=== PATIENT | male | born 2000 | race Caucasian/White ===

== ENCOUNTER 2020-12-27 02:46 | Emergency (ER) | payer BC, OTHER ==
[2020-12-27 02:53] VITALS: TEMP 98.6
[2020-12-27] MEDS ORDERED: SODIUM CHLORIDE 0.9% 1,000 ML IV STA (03:49)
[2020-12-27] MEDS ORDERED: diphenhydrAMINE 50 MG/ML 1 ML VIAL IVP STA (03:54)
[2020-12-27] MEDS ORDERED: FAMOTIDINE 20 MG/2 ML VIAL IV STA (03:54)
[2020-12-27] MEDS ORDERED: methylPREDNISolone SOD SUCCI 125 MG/2 ML VIAL IV STA (03:54)
--- NOTE | 2020-12-27 03:55 | ED ---
Chest Pain HPI - General Chief Complaint: Chest Pain Stated Complaint: Chest/Shoulder Pressure Time Seen by Provider: 12/27/20 03:09 Source: patient, family, RN notes reviewed, old records reviewed Mode of arrival: ambulatory Limitations: no limitations - History of Present Illness Initial Comments: This is a 20-year-old male to the ER for evaluation. Patient has anterior chest pain, he has been experiencing the symptoms since he received to coronavirus vaccination. Patient does admit to little anxiety regarding that 20 since. Patient also does sofia. Otherwise no drugs or alcohol. No trauma. No fevers cough or congestion. Symptoms of been episodic worse at night. MD Complaint: chest pain -: week(s) Onset: during rest, during exertion Pain Location: right chest Pain Radiation: RUE, LUE Severity: mild Severity scale (1-10): 3 Quality: tightness Consistency: intermittent Improves With: nothing Worsens With: nothing Context: other (Recent coronavirus vaccine) Anginal Symptoms: nausea Other Symptoms: palpitations Treatments Prior to Arrival: none - Related Data Home Medications Medication Instructions Recorded Confirmed Sertraline [Zoloft] 100 mg PO DAILY 03/22/14 03/22/14 Allergies Allergy/AdvReac Type Severity Reaction Status Date / Time fexofenadine HCl Allergy Unknown Verified 12/27/20 02:53 [From Vidhi] iodine Allergy Unknown Verified 12/27/20 02:53 Review of Systems ROS Statement: Those systems with pertinent positive or pertinent negative responses have been documented in the HPI. ROS Other: All systems not noted in ROS Statement are negative. EKG Findings - EKG Comments: EKG Findings:: EKG is sinus rhythm 68 IA 146 QRS 104 QTC 387 Past Medical History Past Medical History: No Reported History Additional Past Medical History / Comment(s): anger issues History of Any Multi-Drug Resistant Organisms: None Reported Past Surgical History: No Surgical Hx Reported Past Psychological History: No Psychological Hx Reported Smoking Status: Vaper Past Alcohol Use History: Occasional Past Drug Use History: None Reported General Exam Limitations: no limitations General appearance: alert, in no apparent distress Head exam: Present: atraumatic, normocephalic, normal inspection Eye exam: Present: normal appearance, PERRL, EOMI. Absent: scleral icterus, conjunctival injection, periorbital swelling ENT exam: Present: normal exam, mucous membranes moist Neck exam: Present: normal inspection. Absent: tenderness, meningismus, lymphadenopathy Respiratory exam: Present: normal lung sounds bilaterally. Absent: respiratory distress, wheezes, rales, rhonchi, stridor Cardiovascular Exam: Present: regular rate, normal rhythm, normal heart sounds. Absent: systolic murmur, diastolic murmur, rubs, gallop, clicks GI/Abdominal exam: Present: soft, normal bowel sounds. Absent: distended, tenderness, guarding, rebound, rigid Extremities exam: Present: normal inspection, full ROM, normal capillary refill. Absent: tenderness, pedal edema, joint swelling, calf tenderness Back exam: Present: normal inspection Neurological exam: Present: alert, oriented X3, CN II-XII intact Psychiatric exam: Present: normal affect, normal mood Skin exam: Present: warm, dry, intact, normal color. Absent: rash Course Vital Signs 12/27/20 12/27/20 02:49 04:03 Temperature 98.6 F Pulse Rate 90 66 Respiratory 22 18 Rate Blood Pressure 134/76 115/70 O2 Sat by Pulse 99 100 Oximetry - Reevaluation(s) Reevaluation #1: 12/27/20 05:18 Medical record is reviewed Reevaluation #2: 12/27/20 05:18 Patient is in no acute distress Reevaluation #3: 12/27/20 05:18 Patient family informed of results and questions are answered Reevaluation #4: 12/27/20 05:[address] chest is negative for acute disease Chest Pain MDM - MDM 20 male to the ER for evaluation. Patient presents today for evaluation regards to chest pain atypical. No acute cause found and patient can be discharged home Disposition Clinical Impression: Atypical chest pain, Chest pain Disposition: HOME SELF-CARE Condition: Good Instructions (If sedation given, give patient instructions): Chest Pain (ED) Is patient prescribed a controlled substance at d/c from ED?: No Referrals: None,Stated [Primary Care Provider] - 1-2 days
[2020-12-27 04:04] VITALS: RESP 18
[2020-12-27 04:21] LABS: Basophils # (A) 0.1 k/uL (0-0.2); Basophils % (A) 1 %; Eosinophils # (A) 0.2 k/uL (0-0.7); Eosinophils % (A) 3 %; HCT 41.6 % (39.0-53.0); HGB 14.7 gm/dL (13.0-17.5); Lymphocytes # (A) 2.3 k/uL (1.0-4.8); Lymphocytes % (A) 35 %; MCH 31.2 pg (25.0-35.0); MCHC 35.3 g/dL (31.0-37.0); MCV 88.2 fL (80.0-100.0); Mean Platelet Volume 9.5; Monocytes # (A) 0.5 k/uL (0-1.0); Monocytes % (A) 8 %; Neutrophils # (A) 3.5 k/uL (1.3-7.7); Neutrophils % (A) 52 %; Platelet Count 213 k/uL (150-450); RBC 4.72 m/uL (4.30-5.90); RDW 12.1 % (11.5-15.5); WBC 6.7 k/uL (4.0-11.0)
[2020-12-27 04:31] LABS: ALT 16 U/L (4-49); AST 25 U/L (17-59); African American GFR (CKD) >90 (>60 ml/min/1.73 sqM); Albumin 4.2 g/dL (3.5-5.0); Alkaline Phosphatase 111 U/L (38-126); Anion Gap 8 mmol/L; Blood Urea Nitrogen 14 mg/dL (9-20); Calcium 9.6 mg/dL (8.4-10.2); Carbon Dioxide 28 mmol/L (22-30); Chloride 105 mmol/L (98-107); Creatine Kinase 154 U/L (55-170); Glucose 91 mg/dL (74-99); Lipase 70 U/L (23-300); Magnesium 1.8 mg/dL (1.6-2.3); Non-African American GFR(CKD) >90 (>60 ml/min/1.73 sqM); Potassium 4.4 mmol/L (3.5-5.1); Sodium 141 mmol/L (137-145); Total Bilirubin 0.1 mg/dL (0.2-1.3); Total Protein 7.1 g/dL (6.3-8.2)
[2020-12-27 04:32] LABS: INR 1.1 (<1.2); Partial Thromboplastin Time 27.6 sec (22.0-30.0); Prothrombin Time 11.5 sec (9.0-12.0)
--- NOTE | 2020-12-27 05:06 | CT ---
EXAMINATION TYPE: CT angio chest DATE OF EXAM: 12/27/2020 COMPARISON: None HISTORY: R/O PE CT DLP: 406.20 mGycm Automated exposure control for dose reduction was used. CONTRAST: Performed with IV Contrast, patient injected with 80 mL of Isovue 370. Images obtained from the thoracic inlet to the diaphragm with IV contrast. There are 3-D post process ed images. The lungs are clear of consolidation. There is no evidence of a pulmonary mass. There is no pleural e ffusion. There is no pericardial effusion. Upper abdominal soft tissues are intact. There is no hilar mass. There is no mediastinal adenopathy. Thoracic aorta is intact. There is no ane urysm or dissection. There is normal contrast opacification of the pulmonary arteries. There are no filling defects. The thoracic vertebra have normal spacing and alignment. Posterior elements are intact. There is no c ompression fracture. Sternum is intact. I see no bony destructive process. IMPRESSION: Normal exam. No evidence of pulmonary embolism.
[2020-12-27 05:28] VITALS: BP 116/70; PULSE 60
== END 2020-12-27 05:28 | disposition home or self-care (01) ==
LOC: EC 02:46
DX: R07.89 Other chest pain (principal); F41.9 Anxiety disorder, unspecified; Z23 Encounter for immunization
CPT/HCPCS: 36415; 93005; 83880; 80053; 82550; 83690; 83735; 84484; 85025; 85610; 85730; 71275; 99285; 96374; 96375 ×2; 96361; J1200; J2930; Q9967

== ENCOUNTER 2020-12-29 23:50 | Emergency (ER) | payer BC, OTHER ==
--- NOTE | 2020-12-30 00:32 | XR ---
EXAMINATION TYPE: XR ankle complete RT DATE OF EXAM: 12/30/2020 COMPARISON: NONE HISTORY: Ankle pain TECHNIQUE: 3 views FINDINGS: There is soft tissue swelling over the lateral malleolus. Ankle mortise is anatomic. I see no fracture. Joint spaces are fairly normal. Subtalar joint is intact. IMPRESSION: Soft tissue swelling. No fracture seen.
--- NOTE | 2020-12-30 00:53 | ED ---
Lower Extremity Injury HPI - General Chief Complaint: Extremity Injury, Lower Stated Complaint: RT ankle injury Time Seen by Provider: 12/30/20 00:14 Source: patient, RN notes reviewed, old records reviewed Mode of arrival: ambulatory Limitations: no limitations - History of Present Illness Initial Comments: This is a 20-year-old male to the ER for evaluation. Patient states he was running to ER and his foot got stuck in a hole right-footed did twist. He went to the ground and then had significant pain in his right ankle with significant swelling since. No other traumatic injury noted. Patient has no significant medical history takes no medications. No other complaints MD Complaint: ankle injury -: hour(s) Injury: Ankle: Right Type of Injury: inversion Place: street/outdoors Severity: moderate Severity scale (1-10): 6 Improves With: nothing Worsens With: weight bearing Context: running Associated Symptoms: swelling Treatments Prior to Arrival: cold therapy - Related Data Home Medications Medication Instructions Recorded Confirmed Sertraline [Zoloft] 100 mg PO DAILY 03/22/14 12/30/20 Allergies Allergy/AdvReac Type Severity Reaction Status Date / Time fexofenadine HCl Allergy Unknown Verified 12/29/20 23:55 [From Vidhi] iodine Allergy Unknown Verified 12/29/20 23:55 Review of Systems ROS Statement: Those systems with pertinent positive or pertinent negative responses have been documented in the HPI. ROS Other: All systems not noted in ROS Statement are negative. Past Medical History Past Medical History: Asthma Additional Past Medical History / Comment(s): anger issues History of Any Multi-Drug Resistant Organisms: None Reported Past Surgical History: No Surgical Hx Reported Past Psychological History: No Psychological Hx Reported Smoking Status: Vaper Past Alcohol Use History: Occasional Past Drug Use History: None Reported General Exam Limitations: no limitations General appearance: alert, in no apparent distress Head exam: Present: atraumatic, normocephalic, normal inspection Eye exam: Present: normal appearance, PERRL, EOMI. Absent: scleral icterus, conjunctival injection, periorbital swelling ENT exam: Present: normal exam, mucous membranes moist Neck exam: Present: normal inspection. Absent: tenderness, meningismus, lymphadenopathy Respiratory exam: Present: normal lung sounds bilaterally. Absent: respiratory distress, wheezes, rales, rhonchi, stridor Cardiovascular Exam: Present: regular rate, normal rhythm, normal heart sounds. Absent: systolic murmur, diastolic murmur, rubs, gallop, clicks GI/Abdominal exam: Present: soft, normal bowel sounds. Absent: distended, tenderness, guarding, rebound, rigid Extremities exam: Present: tenderness, normal capillary refill, joint swelling (Right ankle). Absent: pedal edema, calf tenderness Back exam: Present: normal inspection Neurological exam: Present: alert, oriented X3, CN II-XII intact Psychiatric exam: Present: normal affect, normal mood Skin exam: Present: warm, dry, intact, normal color. Absent: rash Course Vital Signs 12/29/20 12/30/20 23:51 01:45 Temperature 98.3 F 98.2 F Pulse Rate 99 79 Respiratory 18 20 Rate Blood Pressure 125/74 122/70 O2 Sat by Pulse 99 99 Oximetry - Reevaluation(s) Reevaluation #1: 12/30/20 05:36 Medical record is reviewed Reevaluation #2: 12/30/20 05:36 Patient and family informed of results questions answered 12/30/20 05:36 Patient is able ambulate without difficulty Medical Decision Making - Medical Decision Making 20-year-old male to the ER for evaluation of ankle pain, right ankle sprain. X- rays negative for fracture patient can be discharged home - Radiology Data Radiology results: report reviewed (X-ray right ankle negative for fracture), image reviewed Disposition Clinical Impression: Fall, Right ankle sprain Disposition: HOME SELF-CARE Condition: Good Instructions (If sedation given, give patient instructions): Ankle Sprain (ED) Is patient prescribed a controlled substance at d/c from ED?: No Referrals: Jana Ann MD [Primary Care Provider] - 1-2 days
[2020-12-30 02:02] VITALS: BP 122/70; PULSE 79; RESP 20; TEMP 98.2
== END 2020-12-30 01:45 | disposition home or self-care (01) ==
LOC: EC 23:50
DX: S93.401A Sprain of unspecified ligament of right ankle, initial encounter (principal); J45.909 Unspecified asthma, uncomplicated; Y92.89 Other specified places as the place of occurrence of the external cause; X50.1XXA Overexertion from prolonged static or awkward postures, initial encounter
CPT/HCPCS: 99283

== ENCOUNTER 2021-11-02 17:19 | Emergency (ER) | payer OTHER ==
--- NOTE | 2021-11-02 18:59 | ED ---
Lower Extremity Injury HPI - General Chief Complaint: Extremity Injury, Lower Stated Complaint: Ankle injury Time Seen by Provider: 11/02/21 18:55 Source: patient, RN notes reviewed Mode of arrival: ambulatory Limitations: no limitations - History of Present Illness Initial Comments: * Injured his ankle yesterday. Patient states he stepped wrong, twisted his ankle, is describing inversion type injury. Patient has pain to the lateral aspect of the ankle. Patient able to walk. Patient requesting a work note as he has to be on his feet constantly at work. Pain is dull, exacerbated by walking and palpation. Patient denying any distal paresthesias. Denies any pain in the foot or proximally into the leg. Patient states he does not want x- rays. No headache, no fever or chills, no changes in vision or hearing, no sore throat or difficulty with speech, no neck pain, no chest pain or shortness of breath, no abdominal pain, no nausea or vomiting, no changes in urination or bowel movements, no numbness or tingling, no extremity pain, no skin rashes or lesions. MD Complaint: ankle injury - Related Data Home Medications Medication Instructions Recorded Confirmed Sertraline [Zoloft] 100 mg PO DAILY 03/22/14 12/30/20 Allergies Allergy/AdvReac Type Severity Reaction Status Date / Time fexofenadine HCl Allergy Unknown Verified 11/02/21 18:53 [From Vidhi] iodine Allergy Unknown Verified 11/02/21 18:53 Review of Systems ROS Statement: Those systems with pertinent positive or pertinent negative responses have been documented in the HPI. ROS Other: All systems not noted in ROS Statement are negative. Past Medical History Past Medical History: Asthma Additional Past Medical History / Comment(s): anger issues History of Any Multi-Drug Resistant Organisms: None Reported Past Surgical History: No Surgical Hx Reported Past Psychological History: No Psychological Hx Reported Smoking Status: Vaper Past Alcohol Use History: Occasional Past Drug Use History: None Reported General Exam Limitations: no limitations General appearance: alert, in no apparent distress Head exam: Present: atraumatic, normocephalic, normal inspection Eye exam: Present: normal appearance, PERRL, EOMI. Absent: scleral icterus, conjunctival injection, periorbital swelling ENT exam: Present: normal exam, mucous membranes moist Neck exam: Present: normal inspection. Absent: tenderness, meningismus, lymphadenopathy Respiratory exam: Present: normal lung sounds bilaterally. Absent: respiratory distress, wheezes, rales, rhonchi, stridor Cardiovascular Exam: Present: regular rate, normal rhythm, normal heart sounds. Absent: systolic murmur, diastolic murmur, rubs, gallop, clicks GI/Abdominal exam: Present: soft, normal bowel sounds. Absent: distended, tenderness, guarding, rebound, rigid Extremities exam: Present: full ROM, tenderness (Patient has tenderness over the area of the anterior talofibular ligament on the right ankle. No break in skin integrity. No erythema. No bony point tenderness.), normal capillary refill, other (Pedal pulses intact, capillary refill less than 2 seconds). Absent: joint swelling, calf tenderness Back exam: Present: normal inspection Neurological exam: Present: alert, oriented X3, CN II-XII intact Psychiatric exam: Present: normal affect, normal mood Skin exam: Present: warm, dry, intact, normal color. Absent: rash Course Vital Signs 11/02/21 18:50 Temperature 98.8 F Pulse Rate 87 Respiratory 18 Rate Blood Pressure 126/75 O2 Sat by Pulse 100 Oximetry Medical Decision Making - Medical Decision Making Patient passes out a lot ankle rules. I did discuss the possibility of fracture with the patient. However patient is electing not to have x-rays done. We'll treat conservatively with Rice therapy. Treatment measures discussed in detail with the patient. All questions answered. Patient was told to return to the ER for any signs or symptoms worsen. Told to return immediately if any other problems arise. All questions answered. Treatment plan discussed. Patient in agreement Every effort has been made to ensure accuracy of this dictation. However, due to the limitations of electronic medical records and dictation devices, errors in charting still occur. Food Adviser Dr. Daly Disposition Clinical Impression: Sprain of anterior talofibular ligament of right ankle Disposition: HOME SELF-CARE Condition: Good Instructions (If sedation given, give patient instructions): Ankle Sprain (ED) Additional Instructions: Follow-up with your regular physician as directed. Return to the ER immediately if any symptoms worsen, new symptoms arise, or any other problems develop. Elevation, ice 20 minutes on and off for times daily, Avelino wrap. Is patient prescribed a controlled substance at d/c from ED?: No Referrals: Jana Ann MD [Primary Care Provider] - 11/09/21 Time of Disposition: 18:59
[2021-11-02 19:21] VITALS: BP 125/80; PULSE 80; RESP 16; TEMP 98.2
== END 2021-11-02 19:18 | disposition home or self-care (01) ==
LOC: EC 17:19
DX: S93.491A Sprain of other ligament of right ankle, initial encounter (principal); J45.909 Unspecified asthma, uncomplicated; Z72.89 Other problems related to lifestyle; F17.290 Nicotine dependence, other tobacco product, uncomplicated; Z91.041 Radiographic dye allergy status; Z88.8 Allergy status to other drugs, medicaments and biological substances; X50.1XXA Overexertion from prolonged static or awkward postures, initial encounter; Y93.01 Activity, walking, marching and hiking
CPT/HCPCS: 99283